=== PATIENT | female | born 1995 | race Caucasian/White ===

== ENCOUNTER 2020-01-07 09:06 | Emergency (ER) | payer MEDICAID ==
[~2020-01-07] VITALS: Ht 165.1 cm; Wt 74.8 kg
--- NOTE | 2020-01-07 09:08 | NUR ---
CAME IN FOR CHEST PAIN, LEFT SIDED, PRESSURE-LIKE, NON-RADIATING, SINCE THURSDAY 05/24PS. TO ER BED 9,CHANGED TO HOSP GOWN, HOOKED TO SALES TRAINEE AND POX, SOLAR PV INSTALLER AT BEDSIDE, NOTED SINUS RHYTHM, WARM BLANKET PROVIDED, PATIENT AO X 4, BREATHING EVEN AND UNLABORED. DR COREY AT BEDSIDE
--- NOTE | 2020-01-07 09:16 | NUR ---
URINE SAMPLE COLLECTED AND SENT TO LAB
[2020-01-07] MEDS ORDERED: ONDANSETRON HCL/PF 4 MG/2 ML VIAL ONE (09:26)
[2020-01-07] MEDS ORDERED: MORPHINE SULFATE INJ 4 MG/ML DISP.SYRIN ONE (09:26)
[2020-01-07] MEDS ORDERED: MORPHINE SULFATE INJ 2 MG/ML DISP.SYRIN IV ONE (09:30)
[2020-01-07] MEDS ORDERED: ONDANSETRON HCL/PF 4 MG/2 ML VIAL IVP ONE (09:30)
[2020-01-07 09:37] LABS: BASOPHILS # (AUTO) 0.1 /CMM (0.0-0.2); BASOPHILS % (AUTO) 1.1 % (0.0-2.0); CALCIUM, SERUM 9.1 mg/dL (8.5-10.1); CARBON DIOXIDE 26 mmol/L (21-32); CHLORIDE 103 mmol/L (98-107); CREATININE 0.9 mg/dL (0.6-1.3); EOSINOPHILS % (AUTO) 4.3 % (0.0-6.0); GLUCOSE 89 mg/dL (74-106); HEMATOCRIT 37 % (33-45); HEMOGLOBIN 11.9 g/dL (11.5-14.8); LYMPHOCYTES # (AUTO) 2.2 /CMM (0.8-4.8); LYMPHOCYTES % (AUTO) 37.2 % (20.0-44.0); MEAN CORPUSCULAR HGB CONC 32 g/dl (31.0-36.0); MEAN CORPUSCULAR VOLUME 88 fL (82-100); MONOCYTES # (AUTO) 0.5 /CMM (0.1-1.30); MONOCYTES % (AUTO) 7.7 % (2.0-12.0); NEUTROPHILS # (AUTO) 2.9 /CMM (1.8-8.9); NEUTROPHILS % (AUTO) 49.7 % (43.0-81.0); PLATELET COUNT (AUTO) 302 /CMM (150-450); RED BLOOD CELL COUNT(AUTO) 4.19 MIL/uL (4.0-5.2); SODIUM SERUM 139 mmol/L (136-145); UREA NITROGEN, BLOOD 10 mg/dL (7-18); WHITE BLOOD COUNT (AUTO) 5.9 K/uL (4.3-11.0)
[2020-01-07 09:43] LABS: ALANINE AMINOTRANSFERASE 21 U/L (12-78); ALBUMIN 3.6 g/dL (3.4-5.0); ALKALINE PHOSPHATASE 84 U/L (46-116); ASPARTATE AMINOTRANSFERASE 15 U/L (15-37); BILIRUBIN,DIRECT 0.1 mg/dL (0.0-0.2); BILIRUBIN,TOTAL 0.2 mg/dL (0.2-1.0); TOTAL PROTEIN, SERUM 7.6 g/dL (6.4-8.2)
[2020-01-07] MEDS ORDERED: FAMOTIDINE/PF INJ 20 MG/2 ML VIAL IV ONE ×2 (10:04→10:30)
[2020-01-07 10:11] VITALS: BP 117/71
--- NOTE | 2020-01-07 10:11 | NUR ---
IV removed. Catheter intact and site benign. Pressure and 4x4 applied to site. No bleeding noted.Patient discharged to home in stable condition. Written and verbal after care instructions given. Patient verbalizes understanding of instruction.
== END 2020-01-07 10:19 | disposition home or self-care (01) ==
LOC: ER 09:07
DX: K29.60 Other gastritis without bleeding (principal); R07.89 Other chest pain; J45.909 Unspecified asthma, uncomplicated
CPT/HCPCS: 36415; 71045; 80048; 80076; 83690; 84484; 84703; 85025; 93005 ×2; 96374; 96375; 99285; J2270; J2405; J3490